=== PATIENT | male | born 1980 | race Caucasian/White ===

== ENCOUNTER → 2018-05-21 | Outpatient (REF) | payer OTHER ==
[2018-05-21 22:22] LABS: CHLAMYDIA DNA AMPLIFICATION NEGATIVE (NEGATIVE); GC DNA AMPLIFICATION NEGATIVE (NEGATIVE)
== END ==
LOC: M SFHCLERA 11:28
DX: M54.5 Low back pain (principal)
CPT/HCPCS: 87086

== ENCOUNTER 2020-11-18 12:28 | Day surgery (SDC) | payer OTHER ==
[~2020-11-18] VITALS: Ht 177.8 cm; Wt 105.2 kg
[~2020-11-18 12:28] MED LIST: ASPI81TA26; ATOR1TAB19; LIDOCAINE 2% 100MG/5ML SDV (FOR ANES.) As Ordered ONE; NS 1,000 ML IV ONE; OMEP-221; SYNT175T2; fentaNYL 100 MCG/2 ML INJECTION (J3010) As Ordered ONE; propofoL 200 MG/20 ML VIAL As Ordered ONE
[2020-11-18] MEDS ORDERED: propofoL 200 MG/20 ML VIAL As Ordered ONE (12:58)
--- NOTE | 2020-11-18 13:21 | ROOR ---
Patient Name: Pedro Pablo Olivarez Procedure Date: 11/18/2020 1:02 PM Date of : 1980 Age: 39 Room: [facility] Gender: Male Note Status: Finalized Procedure: Upper Endoscopy + Biopsies Indications: Heartburn, Exclusion of Cameron's esophagus Providers: John Morrell MD Referring MD: TREMAYNE CASTELLON MD Requesting Provider: Medicines: Monitored Anesthesia Care Complications: No immediate complications. Procedure: Pre-Anesthesia Assessment: - The heart rate, respiratory rate, oxygen saturations, blood pressure, adequacy of pulmonary ventilation, and response to care were monitored throughout the procedure. The Endoscope was introduced through the mouth, and advanced to the second part of duodenum. The upper GI endoscopy was accomplished without difficulty. The patient tolerated the procedure well. Findings: The Z-line was regular and was found 40 cm from the incisors. Multiple biopsies were obtained with cold forceps for evaluation to rule out Cameron's Esophagus randomly at the gastroesophageal junction. No other significant abnormalities were identified in a careful examination of the stomach. The exam of the duodenum was otherwise normal. The exam was otherwise without abnormality. Impression: - Z-line regular, 40 cm from the incisors. - The examination was otherwise normal. - Multiple biopsies were obtained at the gastroesophageal junction. - The examination was otherwise normal. Recommendation: - Patient has a contact number available for emergencies. The signs and symptoms of potential delayed complications were discussed with the patient. Return to normal activities tomorrow. Written discharge instructions were provided to the patient. - High fiber diet. - Discharge patient to home. - Follow an antireflux regimen. - Continue present medications. - Await pathology results. - Telephone GI clinic for pathology results in 1 week. - Return to referring physician. - The findings and recommendations were discussed with the patient. Procedure Code(s): --- Professional --- 42917, Esophagogastroduodenoscopy, flexible, transoral; with biopsy, single or multiple Diagnosis Code(s): --- Professional --- R12, Heartburn CPT copyright 2019 [employer]. All rights reserved. The codes documented in this report are preliminary and upon student records coordinator review may be revised to meet current compliance requirements. John Morrell MD John Morrell MD 11/18/2020 1:20:46 PM Electronically signed by John Morrell MD Number of Addenda: 0 Note Initiated On: 11/18/2020 1:02 PM Estimated Blood Loss: Estimated blood loss: none.
[2020-11-18 13:45] VITALS: BP 105/60
== END 2020-11-18 13:59 | disposition home or self-care (01) ==
LOC: M OPP 12:28
PROVIDERS: ATTEND Internal Medicine Gastroenterology
DX: K29.50 Unspecified chronic gastritis without bleeding (principal); R12 Heartburn; F17.210 Nicotine dependence, cigarettes, uncomplicated; E03.9 Hypothyroidism, unspecified; R00.1 Bradycardia, unspecified; Z79.82 Long term (current) use of aspirin; Z79.899 Other long term (current) drug therapy
CPT/HCPCS: 43239; 88305; J3010

== ENCOUNTER → 2021-05-24 | Outpatient (REF) ==
[~2021-05-24] MED LIST changes: -LIDOCAINE 2% 100MG/5ML SDV (FOR ANES.) As Ordered ONE; -NS 1,000 ML IV ONE; -fentaNYL 100 MCG/2 ML INJECTION (J3010) As Ordered ONE; -propofoL 200 MG/20 ML VIAL As Ordered ONE
--- NOTE | 2021-05-24 15:21 | REP ---
INDICATION: SOB. FINDINGS: Multiple views of the paranasal sinuses show no abnormal soft tissue densities within any of the visualized paranasal sinuses. There are no air fluid levels. There is no lysis or sclerosis of the bony architecture surrounding the paranasal sinuses. There is no significant nasal septal deviation. The adenoidal soft tissues are within normal limits. There is no evidence of airway compromise. IMPRESSION: Unremarkable paranasal sinuses. <Electronically signed by Kyaw Rausch > 05/24/21 [id number]
== END ==
LOC: M PLAIMG 13:52
PROVIDERS: ATTEND Internal Medicine
DX: R06.02 Shortness of breath (principal)

== ENCOUNTER → 2021-06-28 | Outpatient (REF) ==
[~2021-06-28] MED LIST changes: -OMEP-221; +OMEP40CA5
== END ==
LOC: M PLAIMG 11:07
PROVIDERS: ATTEND Internal Medicine
DX: M19.041 Primary osteoarthritis, right hand (principal); M19.042 Primary osteoarthritis, left hand

== ENCOUNTER 2023-11-01 06:54 | Emergency (ER) | payer OTHER ==
[~2023-11-01] VITALS: Ht 177.8 cm; Wt 112.4 kg
[2023-11-01] MEDS ORDERED: ALLO100T PO (07:10)
[2023-11-01] MEDS ORDERED: COLC0.6T47 PO (07:10)
[2023-11-01 07:30] LABS: HEMATOCRIT 46.4 % (42.0-52.0); HEMOGLOBIN 15.9 g/dl (13.5-17.5); MEAN CORPUSCULAR HEMOGLOBIN 30.3 pg (27.0-33.0); MEAN CORPUSCULAR HGB CONC 34.3 g/dl (32.0-36.5); MEAN CORPUSCULAR VOLUME 88.4 fl (80.0-96.0); PLATELET COUNT, AUTOMATED 362 10^3/uL (150-450); RED BLOOD COUNT 5.25 10^6/uL (4.30-6.10); WHITE BLOOD COUNT 11.6 10^3/uL (4.0-10.0)
[2023-11-01 07:59] LABS: BLOOD UREA NITROGEN 11 MG/DL (9-23); CALCIUM LEVEL 9.4 MG/DL (8.5-10.1); CARBON DIOXIDE LEVEL 22 MMOL/L (20-31); CHLORIDE LEVEL 112 MMOL/L (98-107); CREATININE FOR GFR 1.03 MG/DL (0.70-1.30); GLOMERULAR FILTRATION RATE > 60.0 (>60); GLUCOSE, FASTING 88 MG/DL (60-100); POTASSIUM SERUM 3.9 MMOL/L (3.5-5.1); SODIUM LEVEL 144 MMOL/L (136-145)
[2023-11-01] MEDS: NS 1,000 ML IV ONE (08:40)
[2023-11-01] MEDS: KETOROLAC 30 MG/ML 1ML VIAL IV ONE (08:40)
[2023-11-01] MEDS: ONDANSETRON 4MG 2ML VIAL IV ONE (08:40)
[2023-11-01 09:12] LABS: ATYPICAL LYMPH 5 % (0-5); BASOPHILS 1 % (0-1); EOSINOPHILS 6 % (0-3); LYMPHOCYTES 31 % (16-44); MONOCYTES 10 % (0-5); NEUTROPHILS 47 % (28-66)
[2023-11-01 09:13] LABS: PLATELET ESTIMATE NORMAL (NORMAL)
[2023-11-01] MEDS ORDERED: FLOM0.4C39 PO (09:17)
[2023-11-01] MEDS ORDERED: HYDR-3715 PO (09:17)
[2023-11-01] MEDS ORDERED: ONDA4TAB6 PO (09:17)
[2023-11-01] MEDS ORDERED: KETO10TAB PO (09:17)
[2023-11-01] MEDS: TAMSULOSIN 0.4 MG CAP PO ONE (09:28)
[2023-11-01 10:08] VITALS: BP 133/71; TEMP 97.3; O2SAT 99
[2023-11-01 12:03] LABS: GC DNA AMPLIFICATION NEGATIVE (NEGATIVE)
== END 2023-11-01 10:13 | disposition home or self-care (01) ==
LOC: M ED 06:54
DX: N20.1 Calculus of ureter (principal); E03.9 Hypothyroidism, unspecified; M54.50 Low back pain, unspecified; G47.33 Obstructive sleep apnea (adult) (pediatric); M10.9 Gout, unspecified; Z87.442 Personal history of urinary calculi; Z79.1 Long term (current) use of non-steroidal anti-inflammatories (NSAID); Z79.83 Long term (current) use of bisphosphonates; Z79.899 Other long term (current) drug therapy
CPT/HCPCS: 74176; 76775; 80048; 81001; 85025; 86850; 86900; 86901; 87086; 87810; 87850; 96361; 96374; 99284; J1885; J2405